=== PATIENT | male | born 1960 | race Caucasian/White ===

== ENCOUNTER 2018-12-15 09:26 | Day surgery (SDC) | payer BC ==
[2018-12-13 12:15] VITALS: BMI 33.9
[~2018-12-15 09:26] MED LIST: HYDROmorphone 0.5 MG/0.5 ML SYRINGE IVP PRN; LIDOCAINE 1% 20 ML VIAL (10MG/ML) FOR IV START INTRADERMA PRN
[2018-12-15] MEDS: LACTATED RINGERS 1,000 ML IV SCH ×2 (09:44→10:33)
[2018-12-15 09:45] VITALS: TEMP 97.5
[2018-12-15] MEDS ORDERED: PROPOFOL 10 MG/ML 20 ML VIAL IV ONE (10:34)
[2018-12-15] MEDS ORDERED: LIDOCAINE 1% INJ 10MG/ML (20 ML MDV) ONE (10:34)
[2018-12-15 11:10] VITALS: RESP 16
[2018-12-15 11:32] VITALS: BP 151/93; PULSE 58
--- NOTE | 2018-12-15 11:43 | P.PCN ---
Date of Procedure: 12/15/18 Procedure(s) Performed: Procedure: Colonoscopy and polypectomy. Preoperative diagnosis: Screening for neoplasia. Postoperative diagnosis: 1. Sigmoid and rectal polyps snared. 2. Sigmoid diverticulosis. Preparation: HalfLytely prep. Sedation: Was provided by anesthesia. Brief clinical history: The patient is a 58-year-old male who is scheduled for this evaluation for screening for neoplasia age being his risk factor. He has no abdominal complaints, bleeding or anemia. No family history of colon cancer. This would be his first colonoscopy. Procedure: With the patient on his left lateral decubitus position and after informed consent and adequate sedation, the perianal area was inspected and it did not show any fissures or fistulas. There were no masses felt on digital rectal examination. The Olympus CFH 190L video colonoscope was then inserted in the rectum in the usual fashion and advanced to the cecum. There were multiple diverticular orifices seen scattered in the sigmoid with no evidence of acute diverticulitis or strictures. Also, in the sigmoid at around 40 cm from the anal verge, there was a 2-3 cm pedunculated polyp which was snared and retrieved by capturing it with the snare and withdrawing the endoscope and then restarting the examination. There were 2 small polyps in the rectum which were snared and retrieved by suction. No other large polyps or cancer seen. The mucosa appeared healthy. I retroflexed the endoscope in the rectum before the endoscope was withdrawn. The patient tolerated the procedure well. Plan: The patient was reassured. Discussed dietary measures. He will follow up with you as planned and I recommended repeat exam in 3 years.
== END 2018-12-15 12:02 | disposition home or self-care (01) ==
LOC: ORWHC2ENDO 09:26
DX: Z12.11 Encounter for screening for malignant neoplasm of colon (principal); D12.5 Benign neoplasm of sigmoid colon; K62.1 Rectal polyp; J45.909 Unspecified asthma, uncomplicated; K57.30 Diverticulosis of large intestine without perforation or abscess without bleeding; Z79.899 Other long term (current) drug therapy
CPT/HCPCS: 88305; 45385; J2001; J2704

== ENCOUNTER 2019-09-25 11:19 | Observation (INO) | payer BC ==
[2019-09-25] MEDS ORDERED: ASPIRIN 81 MG PO STA (11:44)
[2019-09-25] MEDS ORDERED: NITROGLYCERIN OINT 1 INCH/GM PACKET TOPICAL STA (11:44)
[2019-09-25 12:33] LABS: ALT 37 U/L (21-72); AST 15 U/L (17-59); African American GFR (CKD) >90 (>60 ml/min/1.73 sqM); Albumin 4.1 g/dL (3.5-5.0); Alkaline Phosphatase 56 U/L (38-126); Anion Gap 7 mmol/L; Blood Urea Nitrogen 13 mg/dL (9-20); Calcium 10.1 mg/dL (8.4-10.2); Carbon Dioxide 28 mmol/L (22-30); Chloride 104 mmol/L (98-107); Glucose 103 mg/dL (74-99); Magnesium 1.7 mg/dL (1.6-2.3); Non-African American GFR(CKD) >90 (>60 ml/min/1.73 sqM); Potassium 4.2 mmol/L (3.5-5.1); Sodium 139 mmol/L (137-145); Total Bilirubin 0.8 mg/dL (0.2-1.3); Total Protein 6.7 g/dL (6.3-8.2)
[2019-09-25 12:36] LABS: Basophils # (A) 0.2 k/uL (0-0.2); Basophils % (A) 2 %; Eosinophils # (A) 0.1 k/uL (0-0.7); Eosinophils % (A) 1 %; HCT 41.7 % (39.0-53.0); HGB 14.4 gm/dL (13.0-17.5); Lymphocytes # (A) 1.4 k/uL (1.0-4.8); Lymphocytes % (A) 9 %; MCH 32.3 pg (25.0-35.0); MCHC 34.5 g/dL (31.0-37.0); MCV 93.7 fL (80.0-100.0); Mean Platelet Volume 6.5; Monocytes # (A) 1.3 k/uL (0-1.0); Monocytes % (A) 9 %; Neutrophils # (A) 11.1 k/uL (1.3-7.7); Neutrophils % (A) 78 %; Platelet Count 327 k/uL (150-450); RBC 4.44 m/uL (4.30-5.90); RDW 12.6 % (11.5-15.5); WBC 14.3 k/uL (3.8-10.6)
[2019-09-25 12:42] LABS: INR 0.9 (<1.2); Partial Thromboplastin Time 25.8 sec (22.0-30.0); Prothrombin Time 9.5 sec (9.0-12.0)
--- NOTE | 2019-09-25 12:49 | XR ---
EXAMINATION TYPE: XR chest 2V DATE OF EXAM: 09/25/2019 COMPARISON: 06/27/2016 HISTORY: Weakness with near syncope TECHNIQUE: Frontal and lateral views of the chest are obtained. FINDINGS: Chronic atelectasis at the left lung base in the costophrenic angle is horizontally orient ed. Chronic interstitial prominence is also seen. No new focal consolidation, pleural effusion or pne umothorax. Mild degenerative changes of the thoracic spine. Cardiomediastinal silhouette is within no rmal limits. IMPRESSION: Chronic left basilar subsegmental atelectasis or pleural parenchymal scarring. No acute process seen.
--- NOTE | 2019-09-25 12:56 | ED ---
General Adult HPI - General Chief complaint: Chest Pain Stated complaint: CHEST PAIN Time Seen by Provider: 09/25/19 11:20 Source: patient, RN notes reviewed, old records reviewed Limitations: no limitations - History of Present Illness Initial comments: This is a 5-year-old male who presents emergency Department complaining of anterior chest pain. Patient states it radiates to his back and also makes him short of breath and occasionally sweaty. Patient states his been intermittent since last night. Patient denies any history of diabetes hypertension high cholesterol or smoking. Patient denies any previous cardiac history. Patient denies any family history of cardiac problems. Patient states he has had no recent upper respiratory symptoms. Patient denies any fever chills. Patient denies a cough. Patient denies any abdominal pain patient denies nausea vomiting diarrhea. Patient denies lightheadedness dizziness or syncopal episode. - Related Data Home Medications Medication Instructions Recorded Confirmed Albuterol Sulfate [Proair Hfa] 2 puff INHALATION RT-Q6H PRN 09/14/16 09/25/19 Allergies Allergy/AdvReac Type Severity Reaction Status Date / Time No Known Allergies Allergy Verified 09/25/19 12:26 Review of Systems ROS Statement: Those systems with pertinent positive or pertinent negative responses have been documented in the HPI. ROS Other: All systems not noted in ROS Statement are negative. Past Medical History Past Medical History: Asthma Additional Past Medical History / Comment(s): bronchitis., states testing for sleep apnea. History of Any Multi-Drug Resistant Organisms: None Reported Past Surgical History: No Surgical Hx Reported Additional Past Surgical History / Comment(s): surgery for fx jaw, cataracts Past Anesthesia/Blood Transfusion Reactions: No Reported Reaction Past Psychological History: No Psychological Hx Reported Smoking Status: Never smoker Past Alcohol Use History: Occasional Past Drug Use History: None Reported - Past Family History Father Family Medical History: No Reported History General Exam - General Exam Comments Initial Comments: GENERAL: Patient is well-developed and well-nourished. Patient is nontoxic and well- hydrated and is in mild distress. ENT: Neck is soft and supple. No significant lymphadenopathy is noted. Oropharynx is clear. Moist mucous membranes. Neck has full range of motion without eliciting any pain. EYES: The sclera were anicteric and conjunctiva were pink and moist. Extraocular movements were intact and pupils were equal round and reactive to light. Eyelids were unremarkable. PULMONARY: Unlabored respirations. Good breath sounds bilaterally. No audible rales rhonchi or wheezing was noted. CARDIOVASCULAR: There is a regular rate and rhythm without any murmurs gallops or rubs. ABDOMEN: Soft and nontender with normal bowel sounds. SKIN: Skin is clear with no lesions or rashes and otherwise unremarkable. NEUROLOGIC: Patient is alert and oriented x3. Cranial nerves II through XII are grossly intact. Motor and sensory are also intact. Normal speech, volume and content. Symmetrical smile. MUSCULOSKELETAL: Normal extremities with adequate strength and full range of motion. No lower extremity swelling or edema. No calf tenderness. LYMPHATICS: No significant lymphadenopathy is noted PSYCHIATRIC: Normal psychiatric evaluation. Limitations: no limitations Course Vital Signs 09/25/19 09/25/19 09/25/19 11:20 11:42 13:38 Temperature 97.3 F L Pulse Rate 82 92 Pulse Rate [ 74 Grain Thresher ] Respiratory 18 18 Rate Blood Pressure 151/85 151/92 O2 Sat by Pulse 94 L 97 Oximetry Medical Decision Making - Medical Decision Making EKG shows normal sinus rhythm at 79 bpm [place] interval 244 Faustin 100 QT interval 374 QTC is 428. Patient's EKG shows ST segment elevation in 2 and no other precordial leads. Chest x-ray showed no acute normalities. New. Patient continued to have chest pain emergency department. I started the patient on heparin for unstable angina. I spoke with Dr. Olivier she agreed to admit the patient admitted the patient for unstable angina I consult cardiology I wrote admitting orders I continued heparin and aspirin and Nitropaste on the floor. - Lab Data Result diagrams: 09/25/19 12:00 09/25/19 12:00 Lab Results 09/25/19 09/25/19 09/25/19 Range/Units 12:00 12:00 12:00 WBC 14.3 H (3.8-10.6) k/uL RBC 4.44 (4.30-5.90) m/uL Hgb 14.4 (13.0-17.5) gm/dL Hct 41.7 (39.0-53.0) % MCV 93.7 (80.0-100.0) fL MCH 32.3 (25.0-35.0) pg MCHC 34.5 (31.0-37.0) g/dL RDW 12.6 (11.5-15.5) % Plt Count 327 (150-450) k/uL Neutrophils % 78 % Lymphocytes % 9 % Monocytes % 9 % Eosinophils % 1 % Basophils % 2 % Neutrophils # 11.1 H (1.3-7.7) k/uL Lymphocytes # 1.4 (1.0-4.8) k/uL Monocytes # 1.3 H (0-1.0) k/uL Eosinophils # 0.1 (0-0.7) k/uL Basophils # 0.2 (0-0.2) k/uL PT 9.5 (9.0-12.0) sec INR 0.9 (<1.2) APTT 25.8 (22.0-30.0) sec Sodium 139 (137-145) mmol/L Potassium 4.2 (3.5-5.1) mmol/L Chloride 104 (98-107) mmol/L Carbon Dioxide 28 (22-30) mmol/L Anion Gap 7 mmol/L BUN 13 (9-20) mg/dL Creatinine 0.64 L (0.66-1.25) mg/dL Est GFR (CKD-EPI)AfAm >90 (>60 ml/min/1.73 sqM) Est GFR (CKD-EPI)NonAf >90 (>60 ml/min/1.73 sqM) Glucose 103 H (74-99) mg/dL Calcium 10.1 (8.4-10.2) mg/dL Magnesium 1.7 (1.6-2.3) mg/dL Total Bilirubin 0.8 (0.2-1.3) mg/dL AST 15 L (17-59) U/L ALT 37 (21-72) U/L Alkaline Phosphatase 56 (38-126) U/L Troponin I (0.000-0.034) ng/mL Total Protein 6.7 (6.3-8.2) g/dL Albumin 4.1 (3.5-5.0) g/dL 09/25/19 Range/Units 12:00 WBC (3.8-10.6) k/uL RBC (4.30-5.90) m/uL Hgb (13.0-17.5) gm/dL Hct (39.0-53.0) % MCV (80.0-100.0) fL MCH (25.0-35.0) pg MCHC (31.0-37.0) g/dL RDW (11.5-15.5) % Plt Count (150-450) k/uL Neutrophils % % Lymphocytes % % Monocytes % % Eosinophils % % Basophils % % Neutrophils # (1.3-7.7) k/uL Lymphocytes # (1.0-4.8) k/uL Monocytes # (0-1.0) k/uL Eosinophils # (0-0.7) k/uL Basophils # (0-0.2) k/uL PT (9.0-12.0) sec INR (<1.2) APTT (22.0-30.0) sec Sodium (137-145) mmol/L Potassium (3.5-5.1) mmol/L Chloride (98-107) mmol/L Carbon Dioxide (22-30) mmol/L Anion Gap mmol/L BUN (9-20) mg/dL Creatinine (0.66-1.25) mg/dL Est GFR (CKD-EPI)AfAm (>60 ml/min/1.73 sqM) Est GFR (CKD-EPI)NonAf (>60 ml/min/1.73 sqM) Glucose (74-99) mg/dL Calcium (8.4-10.2) mg/dL Magnesium (1.6-2.3) mg/dL Total Bilirubin (0.2-1.3) mg/dL AST (17-59) U/L ALT (21-72) U/L Alkaline Phosphatase (38-126) U/L Troponin I <0.012 (0.000-0.034) ng/mL Total Protein (6.3-8.2) g/dL Albumin (3.5-5.0) g/dL Critical Care Time Critical Care Time: Yes Total Critical Care Time: 35 Disposition Clinical Impression: Unstable angina pectoris Disposition: ADMITTED IP TO THIS HOSP Referrals: Malick Doss DO [Primary Care Provider] - 1-2 days Time of Disposition: 13:54
[2019-09-25] MEDS ORDERED: KETOROLAC 60 MG/2 ML VIAL IVP STA (13:20)
[2019-09-25] MEDS ORDERED: HEPARIN SODIUM,PORCINE 5,000 UNIT/ML 1 ML VIAL IV ONE (13:21)
[2019-09-25] MEDS ORDERED: HEPARIN SOD,PORK IN 0.45% NACL 25,000 UNIT in 0.45% NACL 1 250ML.BAG IV SCH (13:30)
[2019-09-25] MEDS ORDERED: NITROGLYCERIN SL TABS 0.4 MG TAB SUBLINGUAL PRN (14:20)
[2019-09-25] MEDS ORDERED: ACETAMINOPHEN TAB 500 MG TAB PO STA (14:50)
[2019-09-25] MEDS ORDERED: ACETAMINOPHEN TAB 325 MG TAB PO PRN ×2 (15:34→15:38)
--- NOTE | 2019-09-25 15:44 | P.HPIM ---
History of Present Illness H&P Date: 09/25/19 Chief Complaint: Chest pain The patient is a 59-year-old male with a past medical history of history of sleep apnea with reported compliance with CPAP therapy who presents to the ER with chief complaint of chest pain. Apparently the patient woke up early this morning with left upper sided chest and shoulder discomfort with some radiation into his back and shoulder, patient describes moderate chest pressure with associated shortness of breath and episodes of diaphoresis. The patient reports that his discomfort is worsened by taking deep breaths and by movement in his shoulder. Patient denies any lower extremity swelling palpitations or nausea vomiting, denies any smoking, denies any familial history of coronary disease. 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 The patient does report worsening shortness of breath with laying recumbent and has had to sleep in a recliner. The patient denies any subjective fevers chills or night sweats. Reports intermittent episodes of bloating and belching associated with food intake. In the ER the patient had a comprehensive workup EKG indicated sinus mechanism without initiate suggestion of acute ischemia, d-dimer was negative, troponin was less than 0.012. Chest x-ray showed chronic left basilar subsegmental atelectasis and pleural parenchymal scarring without any acute process. The patient was on Tylenol low-grade fever of 100.3 and his blood pressure is elevated at 154/85 The patient was started on heparin given a dose of aspirin and acetaminophen and placed on heparin drip and recommended for admission Review of Systems Pertinent positive as per HPI all other reviews are negative Past Medical History Past Medical History: Asthma Additional Past Medical History / Comment(s): bronchitis., states testing for sleep apnea. History of Any Multi-Drug Resistant Organisms: None Reported Past Surgical History: No Surgical Hx Reported Additional Past Surgical History / Comment(s): surgery for fx jaw, cataracts Past Anesthesia/Blood Transfusion Reactions: No Reported Reaction Past Psychological History: No Psychological Hx Reported Smoking Status: Never smoker Past Alcohol Use History: Occasional Past Drug Use History: None Reported - Past Family History Father Family Medical History: No Reported History Mother Family Medical History: No Reported History Additional Family Medical History / Comment(s): Mother is healthy Medications and Allergies Home Medications Medication Instructions Recorded Confirmed Type Albuterol Sulfate [Proair Hfa] 2 puff INHALATION RT-Q6H PRN 09/14/16 09/25/19 History Allergies Allergy/AdvReac Type Severity Reaction Status Date / Time No Known Allergies Allergy Verified 09/25/19 12:26 Physical Exam Vitals: Vital Signs Temp Pulse Pulse Resp BP Pulse Ox 09/25/19 14:47 100.3 F H 99 16 133/81 97 09/25/19 13:38 92 18 151/92 97 09/25/19 11:42 74 09/25/19 11:20 97.3 F L 82 18 151/85 94 L Intake and Output 09/25/19 09/25/19 09/25/19 06:59 14:59 22:59 Other: Weight 113.398 kg Constitutional: No acute distress, conversant, pleasant Eyes: Anicteric sclerae, moist conjunctiva, no lid-lag, PERRLA ENMT: NC/AT,Oropharynx clear, no erythema, exudates Neck:Supple, FROM, no masses, or JVD, No carotid bruits; No thyromegaly Lungs: Clear to auscultation, Clear to percussion, Normal respiratory effort, no accessory muscle use Cardiovascular: Heart regular in rate and rhythm, No murmurs, gallops, or rubs no peripheral edema Abdominal: Soft Nontender, nom distended, no guarding, no rebound or rigidity, Normoactive bowel sounds No hepatomegaly, No splenomegaly, No palpable mass No abdominal wall hernia noted Skin: Normal temperature, tone, texture, turgor, No induration No subcutaneous nodules, No rash, lesions, No ulcers Extremities:No digital cyanosis No clubbing, Pedal pulses intact and sym metrical Radial pulses intact and symmetrical Normal gait and station, No calf tenderness Psychiatric: Alert and oriented to person, place and time, Appropriate affect Intact judgement Neuro: Muscles Strength 5/5 in all 4 extremities, Sensation to light touch grossly present throughout, Cranial nerves II-XII grossly intact. No focal sensory deficits Results CBC & Chem 7: 09/25/19 12:00 09/25/19 12:00 Labs: Abnormal Lab Results - Last 24 Hours (Table) 09/25/19 09/25/19 Range/Units 12:00 12:00 WBC 14.3 H (3.8-10.6) k/uL Neutrophils # 11.1 H (1.3-7.7) k/uL Monocytes # 1.3 H (0-1.0) k/uL Creatinine 0.64 L (0.66-1.25) mg/dL Glucose 103 H (74-99) mg/dL AST 15 L (17-59) U/L Assessment and Plan Assessment: Atypical chest pain Elevated blood pressure without diagnosis of hypertension Obstructive sleep apnea on CPAP Leukocytosis GERD Morbid obesity Plan: The patient is placed on observation anticipated less than 2 midnight stay for atypical chest pain with need to rule out ACS initial workup has been negative so far cardiac enzymes have been negative and EKG shows no suggestion of acute ischemia, we'll continue to trend his troponins sequentially continue routine chest pain orders daily aspirin, patient's lungs have elevated blood pressure will start him on Coreg, will further risk stratify by checking a lipid panel. The patient was started on IV heparin this be discontinued 2-D echocardiogram will be ordered and cardiology will be consulted. Patient is instructed to continue CPAP while here. I will continue to follow his clinical course CODE STATUS: Full code Anticipated discharge : 1-[address]: Home Discussed plan of care with patient and his Medical decision maker: Prophylaxis : SCDs heparin and Protonix
[2019-09-25 16:41] VITALS: RESP 18
[2019-09-25] MEDS: PANTOPRAZOLE 40 MG TABLET PO SCH (18:09)
[2019-09-25] MEDS: CARVEDILOL 3.125 MG TAB PO SCH (18:09)
[2019-09-25] MEDS: NITROGLYCERIN OINT 1 INCH/GM PACKET TOPICAL SCH ×2 (18:10→22:46)
[2019-09-25] MEDS ORDERED: MELATONIN 3 MG TABLET PO SCH (21:00)
[2019-09-25] MEDS ORDERED: ATORVASTATIN 40 MG TAB PO SCH (21:00)
[2019-09-25] MEDS: HEPARIN SODIUM,PORCINE 5,000 UNIT/ML 1 ML VIAL SQ SCH (22:43)
[2019-09-25 23:30] LABS: Appearance,Urine Clear (Clear); Bilirubin,Urine Negative (Negative); Blood,Urine Negative (Negative); Color,Urine Light Yellow; Glucose,Urine (UA) Negative (Negative); Ketones,Urine Negative (Negative); Leukocyte Esterase,Urine Negative (Negative); Nitrite,Urine Negative (Negative); PH, Urine 5.5 (5.0-8.0); Protein,Urine Negative (Negative); Specific Gravity,Urine 1.012 (1.001-1.035); Urobilinogen,Urine <2.0 mg/dL (<2.0)
[2019-09-26] MEDS: PANTOPRAZOLE 40 MG TABLET PO SCH (06:02)
[2019-09-26] MEDS: CARVEDILOL 3.125 MG TAB PO SCH (06:03)
[2019-09-26] MEDS: NITROGLYCERIN OINT 1 INCH/GM PACKET TOPICAL SCH (06:05)
[2019-09-26 06:17] LABS: Cholesterol 164 mg/dL (<200); HDL Cholesterol 68 mg/dL (40-60); LDL Cholesterol,Calculated 82 mg/dL (0-99); Triglycerides 72 mg/dL (<150)
[2019-09-26] MEDS: HEPARIN SODIUM,PORCINE 5,000 UNIT/ML 1 ML VIAL SQ SCH (08:16)
[2019-09-26] MEDS ORDERED: ASPIRIN 325 MG TAB PO SCH (09:00)
--- NOTE | 2019-09-26 09:06 | P.CRDCN ---
History of Present Illness Consult date: 09/26/19 Requesting physician: Yara Olivier Consult reason: chest pain Chief complaint: Chest pain History of present illness: This is a 59-year-old gentleman with no prior documented history of hypertension, nondiabetic, no hyperlipidemia, nonsmoker, he does have history of pneumonia on a couple different episodes and takes albuterol at home. According to the patient, he's been dealing with a viral syndrome or upper respiratory infection for the past 3 weeks or so, over the weekend the patient was doing some very heavy chains and felt like he strained the muscles in his chest. He did go to see his primary care doctor who recommended that he come to the hospital for further evaluation. Patient states he also had some shortness of breath and was unable to lie flat because he couldn't breathe. On admission here he was rating his pain and 8, this morning he states it's about a 4, the pain is constant but does worsen with taking a deep breath. Chest x-ray shows chronic left basilar subsegmental atelectasis. EKG shows normal sinus rhythm nonspecific ST-T wave changes. Blood pressure 128/50 with a heart rate in the 70s, 93% on room air. White blood cell count 14.3, hemoglobin 14.4, platelet count 327. D-dimer 0.2, sodium 139, potassium 4.2, BUN 13 and creatinine 0.6. Magnesium 1.7. Troponins are negative 3. Cholesterol 164 LDL 82 HDL 68 and triglycerides 72. Past Medical History Past Medical History: Asthma Additional Past Medical History / Comment(s): bronchitis., states testing for sleep apnea. History of Any Multi-Drug Resistant Organisms: None Reported Past Surgical History: No Surgical Hx Reported Additional Past Surgical History / Comment(s): surgery for fx jaw, cataracts Past Anesthesia/Blood Transfusion Reactions: No Reported Reaction Past Psychological History: No Psychological Hx Reported Smoking Status: Never smoker Past Alcohol Use History: Occasional Past Drug Use History: None Reported - Past Family History Father History Unknown: Yes Family Medical History: No Reported History Additional Family Medical History / Comment(s): Pt states he did not have much contact with his father. He knows he is . Mother Family Medical History: No Reported History Additional Family Medical History / Comment(s): Mother is healthy Medications and Allergies Home Medications Medication Instructions Recorded Confirmed Type Albuterol Sulfate [Proair Hfa] 2 puff INHALATION RT-Q6H PRN 09/14/16 09/25/19 History Allergies Allergy/AdvReac Type Severity Reaction Status Date / Time No Known Allergies Allergy Verified 09/25/19 12:26 Physical Exam Vitals: Vital Signs Temp Pulse Pulse Resp BP BP Pulse Ox 09/26/19 03:50 74 18 09/26/19 03:49 98.6 F 74 18 129/58 93 L 09/25/19 23:15 85 18 09/25/19 23:14 98.0 F 85 18 130/73 95 09/25/19 20:00 98.3 F 83 18 134/75 95 09/25/19 18:08 94 L 09/25/19 16:00 99.5 F 87 18 127/76 94 L 09/25/19 14:47 100.3 F H 99 16 133/81 97 09/25/19 13:38 92 18 151/92 97 09/25/19 11:42 74 09/25/19 11:20 97.3 F L 82 18 151/85 94 L Intake and Output 09/25/19 09/26/19 09/26/19 22:59 06:59 14:59 Intake Total 361.167 160 Balance 361.167 160 Intake: IV 160 .0.9 160 Intake, IV Titration 21.167 Amount Heparin Sod,Pork in 0.45% 21.167 NaCl 25,000 unit In 0.45 % NaCl 1 250ml.bag @ 8. 8188 UNITS/KG/HR 10 mls/ hr IV .Q24H [facility] Rx#: [id number] Oral 340 Other: Voiding Method Toilet Toilet # Voids 1 Weight 117.2 kg PHYSICAL EXAMINATION: GENERAL: 59-year-old gentleman in no acute distress at the time of my examination HEENT: Head is atraumatic, normocephalic. Pupils equal, round. Sclera anicter ic. Conjunctiva are clear. Mucous membranes of the mouth are moist. Neck is supple. There is no elevated jugular venous pressure. No carotid bruit is heard. HEART EXAMINATION: Heart S1, S2 normal. No murmur or gallop heard. CHEST EXAMINATION: Lungs are clear to auscultation and precussion. Positive chest wall tenderness is noted on palpation and with deep breathing. ABDOMEN: Soft, nontender. Bowel sounds are heard. No organomegaly noted. EXTREMITIES: 2+ peripheral pulses with no evidence of peripheral edema and no calf tenderness noted. NEUROLOGIC patient is awake, alert and oriented 3 . . Results 09/25/19 12:00 09/25/19 12:00 Cardiac Enzymes 09/25/19 09/25/19 09/25/19 Range/Units 12:00 12:00 17:33 AST 15 L (17-59) U/L Troponin I <0.012 <0.012 (0.000-0.034) ng/mL 09/26/19 Range/Units 00:13 AST (17-59) U/L Troponin I <0.012 (0.000-0.034) ng/mL Coagulation 09/25/19 Range/Units 12:00 PT 9.5 (9.0-12.0) sec APTT 25.8 (22.0-30.0) sec Lipids 09/26/19 Range/Units 05:46 Triglycerides 72 (<150) mg/dL Cholesterol 164 (<200) mg/dL HDL Cholesterol 68 H (40-60) mg/dL CBC 09/25/19 Range/Units 12:00 WBC 14.3 H (3.8-10.6) k/uL RBC 4.44 (4.30-5.90) m/uL Hgb 14.4 (13.0-17.5) gm/dL Hct 41.7 (39.0-53.0) % Plt Count 327 (150-450) k/uL Comprehensive Metabolic Panel 09/25/19 Range/Units 12:00 Sodium 139 (137-145) mmol/L Potassium 4.2 (3.5-5.1) mmol/L Chloride 104 (98-107) mmol/L Carbon Dioxide 28 (22-30) mmol/L BUN 13 (9-20) mg/dL Creatinine 0.64 L (0.66-1.25) mg/dL Glucose 103 H (74-99) mg/dL Calcium 10.1 (8.4-10.2) mg/dL AST 15 L (17-59) U/L ALT 37 (21-72) U/L Alkaline Phosphatase 56 (38-126) U/L Total Protein 6.7 (6.3-8.2) g/dL Albumin 4.1 (3.5-5.0) g/dL Current Medications Generic Name Dose Route Start Last Admin Trade Name Freq PRN Reason Stop Dose Admin Acetaminophen 650 mg 09/25/19 15:38 09/25/19 20:17 Tylenol Tab PO 650 mg Q6HR PRN Administration MILD Pain Aspirin 325 mg 09/26/19 09:00 09/26/19 08:16 Aspirin PO 325 mg DAILY VIDAL Administration Atorvastatin Calcium 40 mg 09/25/19 21:00 09/25/19 20:16 Lipitor PO 40 mg HS VIDAL Administration Carvedilol 3.125 mg 09/25/19 17:30 09/26/19 06:03 Coreg PO 3.125 mg BID-W/MEALS VIDAL Administration Heparin Sodium (Porcine) 5,000 unit 09/26/19 00:00 09/26/19 08:16 Heparin SQ 5,000 unit Q8HR VIDAL Administration Melatonin 3 mg 09/25/19 21:00 09/25/19 22:43 Melatonin PO 3 mg HS VIDAL Administration Nitroglycerin 0.4 mg 09/25/19 14:20 Nitrostat SUBLINGUAL Q5M PRN Chest Pain Nitroglycerin 1 inch 09/25/19 18:00 09/26/19 06:05 Nitro-Bid Oint TOPICAL 1 inch Q6HR VIDAL Administration Pantoprazole Sodium 40 mg 09/25/19 17:30 09/26/19 06:02 Protonix PO 40 mg AC-BID VIDAL Administration Intake and Output 09/25/19 09/26/19 09/26/19 22:59 06:59 14:59 Intake Total 361.167 160 Balance 361.167 160 Intake: IV 160 .0.9 160 Intake, IV Titration 21.167 Amount Heparin Sod,Pork in 0.45% 21.167 NaCl 25,000 unit In 0.45 % NaCl 1 250ml.bag @ 8. 8188 UNITS/KG/HR 10 mls/ hr IV .Q24H [facility] Rx#: [id number] Oral 340 Other: Voiding Method Toilet Toilet # Voids 1 Weight 117.2 kg 09/25/19 12:00 09/25/19 12:00 EKG Interpretations (text) EKG shows normal sinus rhythm with nonspecific ST-T wave changes Assessment and Plan Plan: Assessment and plan #1 chest discomfort, atypical for acute coronary syndrome, pleuritic/muscular in nature. Troponins negative 3. EKG shows normal sinus rhythm with nonspecific ST-T wave changes. #2 recent viral illness Plan We will order a sed rate, patient did have a recent viral illness, rule out po ssible viral pericarditis. We will also obtain an echocardiogram with Doppler study. We will also start the patient on colchicine, nonsteroidals, and PPI .Further recommendations to follow. DNP note has been reviewed, I agree with a documented findings and plan of care. Patient was seen and examined.
[2019-09-26] MEDS ORDERED: COLCHICINE 0.6 MG EACH PO SCH (10:15)
[2019-09-26] MEDS ORDERED: IBUPROFEN 600 MG TAB PO SCH (10:15)
--- NOTE | 2019-09-26 12:01 | ECHOF ---
Referral Reason:atypical chest pain MEASUREMENTS -------- HEIGHT: 182.9 cm WEIGHT: 112.9 kg BP: 133/81 RVIDd: 4.7 cm (< 3.3) IVSd: 1.6 cm (0.6 - 1.1) LVIDd: 4.3 cm (3.9 - 5.3) LVPWd: 1.6 cm (0.6 - 1.1) IVSs: 1.8 cm LVIDs: 2.2 cm LVPWs: 1.8 cm LAESV Index (A-L): 16.34 ml/m Ao Diam: 2.4 cm (2.0 - 3.7) AV Cusp: 1.6 cm (1.5 - 2.6) LA Diam: 3.9 cm (2.7 - 3.8) MV E Shane: 0.62 m/s MV DecT: 271 ms MV A Shane: 0.75 m/s MV E/A Ratio: 0.82 FINDINGS -------- Sinus rhythm. This was a technically difficult study with suboptimal views. There is moderate concentric left ventricular hypertrophy. Overall left ventricular systolic functi on is normal with, an EF between 60 - 65 %. The diastolic filling pattern is normal for the age of the patient 10.01. The right ventricle is moderately enlarged. Normal LA size by volume 22+/-6 ml/m2. The right atrium was not well visualized. 1.5mg of Definity was utilized for enhancement of images Interatrial and interventricular septum intact. The aortic valve was not well visualized. There is no evidence of aortic regurgitation. There is no evidence of aortic stenosis. The mitral valve was not well visualized. No mitral regurgitation. The tricuspid valve was not well visualized. Trace tricuspid regurgitation present. Unable to est imate RVSP due to inadequate TR jet spectral doppler profile. The pulmonic valve was not well visualized. There is no pulmonic regurgitation present. The aortic root size is normal. IVC Not well visulized. There is no pericardial effusion. CONCLUSIONS -------- 1. Sinus rhythm. 2. This was a technically difficult study with suboptimal views. 3. There is moderate concentric left ventricular hypertrophy. 4. The diastolic filling pattern is normal for the age of the patient 10.01 5. The right ventricle is moderately enlarged. 6. Normal LA size by volume 22+/-6 ml/m2. 7. The right atrium was not well visualized. 8. 1.5mg of Definity was utilized for enhancement of images 9. Interatrial and interventricular septum intact. 10. The aortic valve was not well visualized. 11. There is no evidence of aortic regurgitation. 12. There is no evidence of aortic stenosis. 13. The mitral valve was not well visualized. 14. No mitral regurgitation. 15. The tricuspid valve was not well visualized. 16. Trace tricuspid regurgitation present. 17. Unable to estimate RVSP due to inadequate TR jet spectral doppler profile. 18. The pulmonic valve was not well visualized. 19. There is no pulmonic regurgitation present. 20. The aortic root size is normal. 21. IVC Not well visulized. 22. There is no pericardial effusion. SPEEDER HAND: Annie Millan RDCS
--- NOTE | 2019-09-26 12:33 | P.DS ---
Providers Date of admission: 09/25/19 14:20 Expected date of discharge: 09/26/19 Attending physician: Yara Olivier DO Consults: 09/25/19 14:20 Consult Physician Urgent Consulting Provider: [facility] Consult Reason/Comments: Unstable angina Do you want consulting provider notified?: Yes Primary care physician: Malick Doss DO Hospital Course: Admission diagnosis Atypical chest pain Elevated blood pressure without diagnosis of hypertension Obstructive sleep apnea on CPAP Leukocytosis GERD Morbid obesity Discharge diagnoses Acute pericarditis due to viral illness Atypical chest pain Elevated blood pressure Obstructive sleep apnea Leukocytosis GERD Morbid obesity Hospital course The patient is a 59-year-old male with a past medical history of JAROD and GERD that was admitted with atypical chest pain And found to have acute pericarditis to previous viral illness, EKG shows sinus mechanism with diffuse nonspecific ST T changes, chest x-ray shows chronic left basilar sub segmental atelectasis, troponins were negative 3, LDL was at goal at 82. Patient was noted to have a leukocytosis of 14. Echocardiogram was ordered LV function was preserved with EF of 60-65% with a moderately large right ventricle, there was no noted pericardial effusion. The patient had been started on routine chest pain orders and was treated with aspirin, statin therapy and beta blockers, after ACS was ruled out the patient was discharged home in stable condition with new prescriptions for colchicine, ibuprofen and Protonix. Patient was instructed to follow-up with cardiology Dr. Calles in 1 week. This discharge process took approximately 30 minutes. Focused exam Cardiovascular: Regular rate and rhythm, no murmurs rubs or gallops Patient Condition at Discharge: Good Plan - Discharge Summary Discharge Rx Participant: No New Discharge Prescriptions: New Colchicine [Colcrys] 0.6 mg PO BID #28 each Ibuprofen [Motrin] 600 mg PO TID-W/MEALS #30 tab Pantoprazole [Protonix] 40 mg PO AC-BID #60 tablet.dr Continue Albuterol Sulfate [Proair Hfa] 2 puff INHALATION RT-Q6H PRN PRN Reason: Shortness Of Breath Discharge Medication List Albuterol Sulfate [Proair Hfa] 2 puff INHALATION RT-Q6H PRN 09/14/16 [History] Colchicine [Colcrys] 0.6 mg PO BID #28 each 09/26/19 [Rx] Ibuprofen [Motrin] 600 mg PO TID-W/MEALS #30 tab 09/26/19 [Rx] Pantoprazole [Protonix] 40 mg PO AC-BID #60 tablet. 09/26/19 [Rx] Follow up Appointment(s)/Referral(s): Tony Calles MD [STAFF PHYSICIAN] - 1 Week Malick Doss DO [Primary Care Provider] - 1-2 days
[2019-09-26 14:12] VITALS: TEMP 97.8
[2019-09-26 14:23] VITALS: BP 119/74; PULSE 85
[2019-09-27] MEDS ORDERED: ASPIRIN 81 MG PO SCH (09:00)
== END 2019-09-26 14:21 | disposition home or self-care (01) ==
LOC: EC 11:19 → 3SCARD 14:20
PROVIDERS: ADMIT Internal Medicine; ATTEND Internal Medicine
DX: I30.1 Infective pericarditis (principal); R07.89 Other chest pain; G47.33 Obstructive sleep apnea (adult) (pediatric); K21.9 Gastro-esophageal reflux disease without esophagitis; E66.01 Morbid (severe) obesity due to excess calories; R03.0 Elevated blood-pressure reading, without diagnosis of hypertension; Z99.89 Dependence on other enabling machines and devices; J45.909 Unspecified asthma, uncomplicated; Z79.899 Other long term (current) drug therapy; Z98.42 Cataract extraction status, left eye; Z98.41 Cataract extraction status, right eye; J98.11 Atelectasis; B97.89 Other viral agents as the cause of diseases classified elsewhere
CPT/HCPCS: 96372; 93005 ×2; 96376; 96365; 96366; 96375; 99291; 36415; 93306; 85379; 80061; 80053; 85652; 83735; 84484 ×2; 85025; 85610; 85730; 81003; 71046; G0378 ×2; J1644 ×3; J1885; Q9950